=== PATIENT | male | born 1975 | race Caucasian/White ===

== ENCOUNTER 2022-06-10 06:49 | Day surgery (SDC) | payer BC, MEDICARE ==
[2022-06-10] MEDS ORDERED: fentaNYL 50 MCG/ML SDV ONE (07:26)
[2022-06-10] MEDS ORDERED: Midazolam 1 MG/ML 2 ML SDV ONE (07:26)
[2022-06-10] MEDS ORDERED: Propofol 200 MG/20 ML SDV ONE ×2 (07:26→08:00)
[2022-06-10] MEDS ORDERED: Sodium Chloride 0.9% 1,000 ML IV SCH (07:30)
== END 2022-06-10 09:06 | disposition home or self-care (01) ==
LOC: JP.SDS 06:49
PROVIDERS: ATTEND Surgery
DX: Z12.11 Encounter for screening for malignant neoplasm of colon (principal); K57.30 Diverticulosis of large intestine without perforation or abscess without bleeding; K21.9 Gastro-esophageal reflux disease without esophagitis; Z79.899 Other long term (current) drug therapy
CPT/HCPCS: 45378; J2250; J2704; J3010; J7030